=== PATIENT | female | born 1965 | race Caucasian/White ===

== ENCOUNTER 2019-10-17 00:58 | Emergency (ER) | payer BC ==
[2019-10-17 02:05] LABS: Urine Appearance Cloudy; Urine Bilirubin Negative (Negative); Urine Blood Negative (Negative); Urine Color Yellow; Urine Glucose Negative (Negative); Urine Ketones 1+ (Negative); Urine Nitrite Negative (Negative); Urine Protein Negative (Negative); Urine Specific Gravity 1.028 (1.010-1.030); Urine Urobilinogen Negative (Negative)
[2019-10-17] MEDS: NS 0.9% 1000 ML** 1,000 ML IV ONE (02:07)
[2019-10-17 02:11] LABS: Urine Bacteria Absent (Absent); Urine Red Blood Cell Absent (Absent); Urine Squamous Epithelial Cell Present (Absent); Urine White Blood Cell 3+(>20/hpf) (Absent)
[2019-10-17] MEDS: Ondansetron INJ* 2 MG/ML VIAL IV ONE (02:12)
[2019-10-17 02:23] LABS: INR 0.98 (0.82-1.09)
--- NOTE | 2019-10-17 02:27 | ED ---
Abdominal Pain/Female - HPI Summary HPI Summary: This pt is a 53 Y/O F presenting to [facility] with a CC of mid abdominal pain that has been increasing in severity since 2100 10/16/19 with associated nausea. She states that the pain is increased with pressure and food. She has a Hx of a recently diagnosed hernia that she states flared up. Currently she rates the pain 7/10 in severity. She denies any fevers, vomiting, headaches, decreased appetites, and diarrhea. She states that the hernia has been present for 6 months and is easily visible on CT scans. She states that she has a PMHx of Ovarian cancer. - History of Current Complaint Chief Complaint: EDBraeden Stated Complaint: ABD PAIN PER PT Time Seen by Provider: 10/17/19 01:47 Hx Obtained From: Patient ?: No Onset/Duration: Gradual Onset - Has been present for 6 months, Worse Since - Timing: Constant Severity Initially: Mild Severity Currently: Moderate Pain Intensity: 7 Pain Scale Used: 0-10 Numeric Location: Suprapubic, Other - mid abdominl Radiates: No Aggravating Factor(s): Food, Movement Alleviating Factor(s): Position Associated Signs and Symptoms: Positive: Negative - headache, Nausea. Negative : Fever, Decreased Appetite, Vomiting, Diarrhea Allergies/Adverse Reactions: Allergies Allergy/AdvReac Type Severity Reaction Status Date / Time CT contrast dye Allergy Severe Palpitation Uncoded 10/17/19 01:04 s Home Medications: Home Medications Olaparib [Lynparza] 300 mg PO DAILY 10/17/19 [History Confirmed 10/17/19] PMH/Surg Hx/FS Hx/Imm Hx Previously Healthy: Yes Cardiovascular History: Reports: Other Cardiovascular Problems/Disorders - hypothyroidism History: Reports: Other Problems/Disorders - Ovarian CA Sensory History: Reports: Hx Contacts or Glasses Opthamlomology History: Reports: Hx Contacts or Glasses - Cancer History Cancer Type, Location and Year: Ovarian cancer Date and Location of Last Treatment: chemotherapy November 2018 - Surgical History Surgical History: Yes Surgery Procedure, Year, and Place: x 3 - Immunization History Immunizations Up to Date: Yes Infectious Disease History: No Infectious Disease History: Denies: Traveled Outside the [place] in Last 30 Days - Family History Known Family History: Negative: Cardiac Disease, Hypertension - Social History Occupation: Employed Full-time Lives: With Family Alcohol Use: None Hx Substance Use: No Substance Use Type: Reports: None Hx Tobacco Use: No Smoking Status (MU): Never Smoked Tobacco Household Exposure: No Review of Systems Negative: Fever Positive: Abdominal Pain - mid abdominal and suprapubic, Nausea. Negative: Vomiting, Diarrhea Negative: Headache All Other Systems Reviewed And Are Negative: Yes Physical Exam - Summary Physical Exam Summary: General: Well-developed, Well-nourished female in mild discomfort HEENT: Normocephalic, Atraumatic. Eyes: Conjuctiva normal, PERRL. Ears: TMs within normal limits. Nares: (-) discharge, (-) erythema. Oropharynx: Clear, mucous membranes moist, (-) exudates. Neck: Soft, FROM, (-) lymphadenopathy, (-) thyromegaly, (-) JVD. Cardiovascular: Normal sinus rhythm, (-) murmur. Lungs: Clear to auscultation bilaterally (-) wheezes, (-) rales, (-) rhonchi. Abdomen: Soft, non-tender, non-distended, (-) organomegaly, normal bowel sounds. Midline scar with abdominal wall defect protruding Back: (-) CVA tenderness Extremities: No edema. Skin: Warm, dry, (-) rash. Neuro: Alert and oriented x3, no focal deficits. Psychiatric: Mood normal, affect normal. Triage Information Reviewed: Yes Vital Signs On Initial Exam: Initial Vitals Temp Pulse Resp BP Pulse Ox 98.2 F 118 16 147/90 99 10/17/19 01:00 10/17/19 01:00 10/17/19 01:00 10/17/19 01:00 10/17/19 01:00 Vital Signs Reviewed: Yes Procedures - Sedation Patient Received Moderate/Deep Sedation with Procedure: No Diagnostics - Vital Signs Vital Signs Temp Pulse Resp BP Pulse Ox 10/17/19 01:45 98 98 10/17/19 01:44 99 147/84 97 10/17/19 01:00 98.2 F 118 16 147/90 99 - Laboratory Lab Results: Lab Results 10/17/19 Range/Units 01:55 Urine Color Yellow Urine Appearance Cloudy Urine pH 5.0 (5-9) Ur Specific [place] 1.028 (1.010-1.030) Urine Protein Negative (Negative) Urine Ketones 1+ A (Negative) Urine Blood Negative (Negative) Urine Nitrate Negative (Negative) Urine Bilirubin Negative (Negative) Urine Urobilinogen Negative (Negative) Ur Leukocyte Esterase 3+ A (Negative) Urine WBC (Auto) 3+(>20/hpf) A (Absent) Urine RBC (Auto) Absent (Absent) Ur Squamous Epith Cells Present A (Absent) Urine Bacteria Absent (Absent) Urine Glucose Negative (Negative) Urine Ascorbic Acid * A (Negative) Result Diagrams: 10/17/19 02:00 10/17/19 02:00 Lab Statement: Any lab studies that have been ordered have been reviewed, and results considered in the medical decision making process. Re-Evaluation - Re-Evaluation First Eval Re-Evaluation Time: 03:20 Change: Improved Comment: Pt reported that her pain had decreased from a 7 to a 3 and that she felt she was feeling good enough to be discharged home without a CT scan. Abdominal Pain Fem Course/Dx - Course Course Of Treatment: 53-year-old female with known ovarian cancer presents with abdominal pain. Patient states she has a known abdominal hernia. She thinks it is acting up. She states she has not been on her oral chemotherapy for 9 days because her white blood cell counts were so low. Patient given IV fluids, Toradol and Zofran. During physical exam a definitive protrusion was reduced into the abdomen. Patient had significant improvement in her symptoms at that time. Workup showed no significant changes. Patient discharged home. Follow- up with PCP. Follow up sooner for any worsening symptoms. - Diagnoses Provider Diagnoses: Abdominal pain, Abdominal hernia Discharge ED - Sign-Out/Discharge Documenting (check all that apply): Patient Departure - discharge - Discharge Plan Condition: Stable Disposition: HOME Patient Education Materials: Umbilical Hernia (ED), Acute Abdominal Pain (ED) Referrals: Rylee Jaramillo MD [Primary Care Provider] - 2 Days Additional Instructions: PLEASE RETURN TO THE EMERGENCY DEPARTMENT FOR ANY NEW OR WORSENING SYMPTOMS. FOLLOW UP WITH YOUR PRIMARY CARE PROVIDER IN 1-3 DAYS. - Billing Disposition and Condition Condition: STABLE Disposition: Home - Attestation Statements Document Initiated by Scribe: Yes Documenting Scribe: Marshall Kuo Provider For Whom Scribe is Documenting (Include Credential): Natalie Fry MD Scribe Attestation: IMarshall, scribed for Natalie Fry MD on 10/17/19 at 0424. Scribe Documentation Reviewed: Yes Provider Attestation: The documentation as recorded by the scribe, Marshall Kuo accurately reflects the service I personally performed and the decisions made by me, Natalie Fry MD Status of Scribe Document: Viewed
[2019-10-17 02:33] LABS: ALT 15 U/L (7-52); AST 23 U/L (13-39); Albumin 4.4 g/dL (3.2-5.2); Albumin/Globulin Ratio 1.4 (1-3); Alkaline Phosphatase 60 U/L (34-104); Anion Gap 8 mmol/L (2-11); BUN/Creatinine Ratio 27.6 (8-20); Blood Urea Nitrogen 21 mg/dL (6-24); C Reactive Protein 7.63 mg/L (<8.01); CO2 Carbon Dioxide 28 mmol/L (22-32); Calcium 9.9 mg/dL (8.6-10.3); Chloride 103 mmol/L (101-111); EGFR African American 96.3 (>60); EGFR Non-African American 79.6 (>60); Globulin 3.2 g/dL (2-4); Glucose 116 mg/dL (70-100); Potassium 3.4 mmol/L (3.5-5.0); Sodium 139 mmol/L (135-145); Total Protein 7.6 g/dL (6.4-8.9)
[2019-10-17] MEDS: Ketorolac INJ* 30 MG/ML 1 ML VIAL IV PUSH ONE (02:41)
[2019-10-17 03:30] LABS: Polychromasia 1+
[2019-10-17 03:32] LABS: Hematocrit 34 % (35-47); Hemoglobin 11.8 g/dL (12.0-16.0); Mean Corpuscular HGB Conc 35 g/dL (31-36); Mean Corpuscular Hemoglobin 41 pg (27-31); Mean Corpuscular Volume 118 fL (80-97); Platelet Count 172 10^3/uL (150-450); Red Blood Count 2.89 10^6 /uL (3.70-4.87); Red Cell Distribution Width 17 % (10-15); White Blood Count 2.9 10^3/uL (3.5-10.8)
[2019-10-17 03:35] LABS: ABS Lymphocytes 1.1 10^3/ul (1.0-4.8); ABS Monocytes 0.3 10^3/ul (0-0.8); Eosinophil % 1.4 %; Lymphocyte % 45.5 %
[2019-10-17 03:40] LABS: ABS Neutrophils 1.2 10^3/ul (1.5-7.7)
[2019-10-17 03:42] LABS: ABS Nucleated RBC 2.5 10^3/ul
[2019-10-17 04:14] VITALS: BP 118/69
--- NOTE | 2019-10-19 05:46 | ED ---
Imaging and Labs Follow Up Follow Up Type: Labs/Cultures Labs/Culture Result: Urine culture final grew strep group B 50-75,000 Patient was asymptomatic of UTI symptoms Patient Communication/Plan: Patient was not treated with antibiotics prior to discharge Patient Communication/Plan: Treatment appropriate, nothing further required Provider Diagnoses: Abdominal pain, Abdominal hernia
== END 2019-10-17 04:00 | disposition home or self-care (01) ==
LOC: ED 00:58
DX: K46.9 Unspecified abdominal hernia without obstruction or gangrene (principal); E03.9 Hypothyroidism, unspecified; C56.9 Malignant neoplasm of unspecified ovary; Z79.899 Other long term (current) drug therapy; Z91.041 Radiographic dye allergy status
CPT/HCPCS: 36415; 80053; 81003; 81015; 83605; 83690; 85025; 85060; 85610; 86140; 87040; 87077; 87086; 96361; 96374; 99282; J1885

== ENCOUNTER 2020-03-10 10:28 | Emergency (ER) | payer BC, OTHER ==
--- OUTSIDE RECORDS SUMMARY | 2020-03-10 10:36 | XMS REPORT | Summary of Care ---
:1965 Author Organization [facility] Address [address] [place] [address] Care Team Providers Name Role Phone Unavailable Primary Care Provider Unavailable Encounter Details Date Type Department Care Team Description 01/12/2020 Hospital Encounter [facility] Clinical Pathology at [address] [address] Allergies Not on Filedocumented as of this encounter (statuses as of 01/13/2020) Medications Not on filedocumented as of this encounter (statuses as of 01/13/2020) Active Problems Not on filedocumented as of this encounter (statuses as of 01/13/2020) Social History Tobacco Use Types Packs/Day Years Used Date Never Assessed Sex Assigned at Date Recorded Not on file Job Start Date Occupation Industry Not on file Not on file Not on file Travel History Travel Start Travel End No recent travel history available. documented as of this encounter Last Filed Vital Signs Not on filedocumented in this encounter Plan of Treatment Name Type Priority Associated Diagnoses Date/Time Hematopathology Pathology and Routine 01/12/2020 3:44 PM Cytology EST Name Type Priority Associated Diagnoses Order Schedule Hematopathology Pathology and Routine Once for 1 Cytology Occurrences starting 01/12/2020 until 01/12/2020 Health Maintenance Due Date Last Done Comments Hepatitis C Screening (B. 1965 [id number]) MMR Vaccines (1 of 1 - Standard 1966 series) Varicella Vaccines (1 of 2 - 1966 2-dose childhood series) DTaP,Tdap,and Td Vaccines (1 - 1972 Tdap) HIV Screening 1978 Cervical Cancer Screening 5 years 1986 Breast Cancer Screening 2 years 2015 Colon Cancer Screening 10 yrs 2015 Influenza Vaccine 08/26/2019 Pneumococcal Vaccine: 65+ Years (1 2030 of 2 - PCV13) HIB Vaccines Aged Out No longer eligible based on patient's age to complete this topic Hepatitis A Vaccines Aged Out No longer eligible based on patient's age to complete this topic Hepatitis B Vaccines Aged Out No longer eligible based on patient's age to complete this topic IPV Vaccines Aged Out No longer eligible based on patient's age to complete this topic Pneumococcal Vaccine: Pediatrics Aged Out No longer eligible based on (0 to 5 Years) and At-Risk patient's age to complete this Patients (6 to 64 Years) topic documented as of this encounter Results Not on filedocumented in this encounter
--- OUTSIDE RECORDS SUMMARY | 2020-03-10 10:36 | XMS REPORT | Summary of Care ---
:1965 Author Organization [facility] Address [address] [place] [address] Care Team Providers Name Role Phone Clint Rylee Primary Care Provider Reason for Visit Reason Comments Abscess pt states she has an abscess on top left side of gums since sunday. ( pressure and puffy) Encounter Details Date Type Department Care Team Description 01/12/2020 Office Visit [facility], Gum inflammation ( Primary Dx); Practice [facility] Low hemoglobin; [address] Malignant neoplasm of uterus, unspecified site (HCC) [place], [place] [address] [place] [address] [phone] Allergies Active Allergy Reactions Severity Noted Date Comments Dye Intravenous Radiographic Hives, Cardiac Reaction High 07/02/2019 Imaging Contrast documented as of this encounter (statuses as of 01/12/2020) Medications Medication Sig Dispensed Refills Start Date End Date Status aspirin 325 MG Oral Take 325 mg by 0 Active Tab mouth DAILY. levothyroxine TAKE 1 TABLET 90 Tab 0 10/13/2019 Active (SYNTHROID\\UNITHROI BEFORE D) 100 MCG Oral Tab BREAKFAST acyclovir (ZOVIRAX) 0 01/05/2020 Active 400 MG Oral Tab allopurinol 0 01/05/2020 Active (ZYLOPRIM) 300 MG Oral Tab foliC acid 1 MG 0 01/05/2020 Active Oral Tab amoxicillin-clavula Take 1 Tab by 20 Tab 0 01/12/2020 Active master acid (AUGMENTIN mouth TWICE 875 MG) 875-125 MG DAILY. Oral Tab Olaparib (LYNPARZA) Take 2 Tabs by 0 Discontinued 150 MG Oral Tab mouth TWICE 0 DAILY. documented as of this encounter (statuses as of 01/12/2020) Active Problems Problem Noted Date Knee pain, bilateral 02/18/2016 Uterine cancer 10/05/2014 Overview: Dx February 2014 S/p 6 cycles of chemo completed August 2014 Pulmonary embolus 10/05/2014 Overview: Apr 04 2014 Failed warfarin and maintained on Lovenox Hypothyroidism documented as of this encounter (statuses as of 01/12/2020) Social History Tobacco Use Types Packs/Day Years Used Date Never Smoker Smokeless Tobacco: Never Used Alcohol Use Drinks/Week oz/Week Comments No Sex Assigned at Date Recorded Not on file documented as of this encounter Last Filed Vital Signs Vital Sign Reading Time Taken Comments Blood Pressure 126/78 01/12/2020 8:10 AM EST Pulse 93 01/12/2020 8:10 AM EST Temperature 38.2 01/12/2020 8:10 AM C (100.8 EST F) Respiratory Rate - - Oxygen Saturation 98% 01/12/2020 8:10 AM EST Inhaled Oxygen Concentration - - Weight 76.2 kg (168 lb) 01/12/2020 8:10 AM EST Height 165.1 cm (5' 5") 01/12/2020 8:10 AM EST Body Mass Index 27.96 01/12/2020 8:10 AM EST documented in this encounter Patient Instructions Patient InstructionsDodgeEmily PA-C - 01/12/2020 8:00 AM ESTEscribed augmentin 875mg BID x 10 days, take with food Warm salt water rinses 3-4 x daily Avoid hard, crunchy foods OTC Ibuprofen 400mg twice daily, take with food for inflammation and fever Call Industrial Controller today, fever, low H&H and elevated bilirubin is concern documented in this encounter Progress Notes Emily Martins PA-C - 01/12/2020 8:00 AM EST PATIENT: Monika Medrano : 1965 DATE OF SERVICE: 01/12/2020 REFERRING PRACTITIONER: Self-Referred PRIMARY CARE PROVIDER: Rylee Jaramillo CHIEF COMPLAINT: Chief Complaint Patient presents with ? Abscess pt states she has an abscess on top left side of gums since sunday. ( pressure and puffy) Subjective HISTORY OF PRESENT ILLNESS: Monika Medrano is a 54-y.o. female who presents with abscess upper left gum x 2 days Has uterine cancer, sees electric appliance installer in [place] and [place] Scheduled for next round of chemo Wed Had blood drawn at [facility] last Hgb: 7.0, hct: 21; tbili: 2.7 Says her H&H has been trending down, feels she will need another blood transfusion soon Has one in [place] at during last chemo 4 weeks ago Denies nausea, vomiting, diarrhea, chest pains, SOB Past Medical History: Diagnosis Date ? H/O splenectomy ? Hypothyroidism ? Pulmonary embolus (HCC) 10/05/2014 Apr 04 2014 Failed warfarin and maintained on Lovenox . After [facility] ? Uterine cancer (HCC) 10/05/2014 . [facility] [place] [place] Past Surgical History: Procedure Laterality Date ? APPENDECTOMY ? SECTION NEC x3 ? [place] TOTAL ABDOM HYSTERECTOMY 2016 Vaginal reoccurance in 2016 ? TOTAL SPLENECTOMY No family history on file. Current Outpatient Medications Medication Sig ? aspirin 325 MG Oral Tab Take 325 mg by mouth DAILY. ? levothyroxine (SYNTHROID\\UNITHROID) 100 MCG Oral Tab TAKE 1 TABLET BEFORE BREAKFAST ? Olaparib (LYNPARZA) 150 MG Oral Tab Take 2 Tabs by mouth TWICE DAILY. No current facility-administered medications for this visit. Allergies Allergen Reactions ? Dye Intravenous Radiographic Imaging Contrast Hives and Cardiac Reaction Social History Socioeconomic History ? Marital status: Spouse name: Not on file ? Number of children: Not on file ? Years of education: Not on file ? Highest education level: Not on file Occupational History ? Not on file Social Needs ? Financial resource strain: Not on file ? Food insecurity Worry: Not on file Inability: Not on file ? Transportation needs Medical: Not on file Non-medical: Not on file Tobacco Use ? Smoking status: Never Smoker ? Smokeless tobacco: Never Used Substance and Sexual Activity ? Alcohol use: No ? Drug use: No ? Sexual activity: Yes Partners: Male Lifestyle ? Physical activity Days per week: Not on file Minutes per session: Not on file ? Stress: Not on file Relationships ? Social connections Talks on phone: Not on file Gets together: Not on file Attends catholic service: Not on file Active member of club or organization: Not on file Attends meetings of clubs or organizations: Not on file Relationship status: Not on file ? Intimate partner violence Fear of current or ex partner: Not on file Emotionally abused: Not on file Physically abused: Not on file Forced sexual activity: Not on file Other Topics Concern ? Back Care Not Asked ? Bike Helmet Not Asked ? Blood Transfusions No ? Caffeine Concern Not Asked ? Exercise Yes Comment: soft ball in summer/walking/eliptical ? Hobby Hazards Not Asked ? International Travel Not Asked ? Service Not Asked ? Occupational Exposure Not Asked ? Seat Belt Not Asked ? Self-Exams Not Asked ? Sleep Concern Not Asked ? Special Diet Not Asked ? Stress Concern Not Asked ? 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 Left upper gums tender, swollen Respiratory: positive mild cough Cardiovascular: negative chest pain Gastrointestinal: negative abdominal pain, constipation, diarrhea, nausea or vomiting Genitourinary: negative burning on urination, dysuria or vaginal discharge Musculoskeletal: positive arthritis/joint pain Neurologic: negative numbness or tingling of feet or hands Psychiatric: negative anxiety Hematologic/Lymphatic/Immunologic: negative allergies. Positive uterine cancer Endocrine: positive hypothyroidism Objective PHYSICAL EXAMINATION: VITALS: BP 126/78 (BP Location: Right arm, Patient Position: Sitting) | Pulse 93 | Temp 100.8 F (38.2 C) | Ht 5' 5" (1.651 m) | Wt 168 lb (76.2 kg ) | SpO2 98% | BMI 27.96 kg/m Body mass index is 27.96 kg/m. General appearance: alert, mild distress, cooperative, oriented times 3 Skin: mild jaundice present face Head: Normocephalic. No masses, lesions, tenderness or abnormalities Eyes: conjunctivae/corneas clear. PERRL, EOM's intact. Ears: TMs and canals normal bilaterally Nose/Sinuses: mucosa normal, no rhinorrhea Oropharynx: positive findings: left upper gum is swollen, mild erythema, tender to palpation Neck: Neck supple, FROM. No cervical or supraclavicular adenopathy. Lungs: Lungs clear. Chest symmetrical. Normal breath sounds. Heart: RRR. No murmur, clicks or gallops. No peripheral edema . IMPRESSION: ICD-9-CM ICD-10-CM 1. Gum inflammation 523.10 K05.10 2. Low hemoglobin 285.9 D64.9 3. Malignant neoplasm of uterus, unspecified site (HCC) 179 C55 Plan PLAN: Escribed augmentin 875mg BID x 10 days, take with food Warm salt water rinses 3-4 x daily Avoid hard, crunchy foods OTC Ibuprofen 400mg twice daily, take with food for inflammation and fever Call Industrial Controller today, fever, low H&H and elevated bilirubin is concern Author: Emily Martins PA-C 01/12/2020 08:06 documented in this encounter Plan of Treatment Date Type Specialty Care Team Description 06/30/2020 Office Visit [facility]in[facility] [address] [address] Health Maintenance Due Date Last Done Comments PNEUMOCOCCAL 0-64 YRS (1 of 1971 3 - PCV13) DTaP/Tdap/Td Vaccines (1 - 1976 Tdap) Colonoscopy 2015 ZOSTER IMMUNIZATION SERIES 2015 (1 of 2) MAMMOGRAM (SCREENING) 08/26/2016 08/26/2015, 03/16/2014 (Declined), 10/12/2008 INFLUENZA VACCINE (#1) 2019 DIABETES SCREENING 07/30/2019 07/30/2018, 07/27/2017, 07/27/2017, Additional history exists DEPRESSION SCREENING 01/12/2021 01/12/2020 LIPID DISORDER SCREENING 07/27/2022 07/27/2017 HEPATITIS A IMMUNIZATION Aged Out No longer eligible SERIES based on patient's age to complete this topic HPV IMMUNIZATION SERIES Aged Out No longer eligible based on patient's age to complete this topic MENINGOCOCCAL VACCINE IMM Aged Out No longer eligible based on patient's age to complete this topic documented as of this encounter Results Not on filedocumented in this encounter Visit Diagnoses Diagnosis Gum inflammation Chronic gingivitis, plaque induced Low hemoglobin Anemia, unspecified Malignant neoplasm of uterus, unspecified site (HCC) documented in this encounter Insurance Payer Benefit Plan / Subscriber ID Effective Dates Phone Address Type Group [employer] [id number] 2015-Present [employer] Guarant[employer] Name Account Type Relation to Date of Phone Billing Patient Address Monika Medrano Personal/Family 1965 [address] [phone] [place], [place] (Work) [address] documented as of this encounter
--- OUTSIDE RECORDS SUMMARY | 2020-03-10 10:36 | XMS REPORT | Summary of Care ---
:1965 Author Organization [facility] Address [address] [place] [address] Care Team Providers Name Role Phone Unavailable Primary Care Provider Unavailable Encounter Details Date Type Department Care Team Description 01/22/2020 Hospital Encounter [facility] Clinical Pathology at [address] [address] Allergies Not on Filedocumented as of this encounter (statuses as of 01/23/2020) Medications Not on filedocumented as of this encounter (statuses as of 01/23/2020) Active Problems Not on filedocumented as of this encounter (statuses as of 01/23/2020) Social History Tobacco Use Types Packs/Day Years [...] Plan of Treatment Name Type Priority Associated Date/Time Diagnoses Leukemia/Lymphoma Lab Routine 01/22/2020 8:59 Phenotype, Peripheral AM EST Cytogenetics Oncology, Pathology and Routine 01/22/2020 12:56 Blood and Bone Marrow Cytology PM EST Hematopathology Pathology and Routine 01/22/2020 1:49 Cytology PM EST Name Type Priority Associated Order Schedule Diagnoses Leukemia/Lymphoma Lab Routine Once for 1 Phenotype, Peripheral Occurrences starting 01/22/2020 until 01/22/2020 Cytogenetics Oncology, Pathology and Routine Once for 1 Blood and Bone Marrow Cytology Occurrences starting 01/22/2020 until 01/22/2020 Hematopathology Pathology and Routine Once for 1 Cytology Occurrences starting 01/22/2020 until 01/22/2020 Health Maintenance Due Date Last Done Comments Hepatitis C Screening (B. 1965 [id number]) MMR Vaccines (1 of 1 - Standard [...] Years) topic documented as of this encounter Procedures Procedure Name Priority Date/Time Associated Diagnosis Comments BM KARYO RFX Routine 01/22/2020 8:59 AM Results for this FISH () EST procedure are in the results section. documented in this encounter Results BM Karyo Rfx FISH (01/22/2020 8:59 AM EST) BM Karyo Rfx For Results, Please [facility] FISH See Cytogenetics CLINICAL Report PATHOLOGY Specimen Bone Marrow Performing Organization Address City/State/Zipcode Phone Number [facility] CLINICAL PATHOLOGY [address] [place] [address] [phone] documented in this encounter
[2020-03-10] MEDS ORDERED: NS 0.9% 1000 ML** 1,000 ML IV ONE ×2 (10:40→12:26)
--- NOTE | 2020-03-10 11:12 | ED ---
Complex/Multi-Sys Presentation - HPI Summary HPI Summary: Patient is a 54 y/o F w/ Hx of AML who presents to [facility] with complaints of SOB , anterior CP, dizziness, and fevers. The patient has been getting chemotherapy with most recent administration having been three weeks ago. Patient has been SOB the past few weeks with a recent worsening of this Sx. Fevers have been intermittent with most recent having occurred yesterday. No vomiting, diarrhea, BLE edema noted. Hx of pancytopenia and ovarian cancer in remission noted as well. Patient was tested for COVID-19 last week and resulted negative. Patient states that she was initially following oncology in [place] but due to the pandemic switched services over to [place]. Patient has a right-sided port-a- cath placed. PSHx of caesarean section noted. Allergy to contrast dye claimed. She is a non-smoker and denies alcohol and substance usage. Home medications and allergies are reviewed. - History Of Current Complaint Chief Complaint: EDShortnessOfBreath Time Seen by Provider: 03/10/20 10:39 Hx Obtained From: Patient Onset/Duration: Lasting Weeks - SOB Timing: Intermittent, Lasting: - fevers, Weeks - SOB Location: Pain At: - chest Associated Signs And Symptoms: Positive: Dizziness, SOB, Chest Pain, Fever. Negative: Edema, Vomiting, Diarrhea - Allergies/Home Medications Allergies/Adverse Reactions: Allergies Allergy/AdvReac Type Severity Reaction Status Date / Time CT contrast dye Allergy Severe Palpitation Uncoded 10/17/19 01:04 s Home Medications: Home Medications Acyclovir* [Zovirax 400 MG TAB*] 400 mg PO BID 03/10/20 [History Confirmed 03/10] Allopurinol TAB* [Zyloprim 300 MG TAB*] 300 mg PO DAILY 03/10/20 [History Confirmed 03/10/20] Aminocaproic Acid 1,000 mg PO BID 03/10/20 [History Confirmed 03/10/20] Folic Acid TAB* [Folvite TAB*] 1 mg PO DAILY 03/10/20 [History Confirmed ] Levofloxacin TAB* [Levaquin TAB*] 750 mg PO DAILY 03/10/20 [History Confirmed ] Posaconazole (NF) [Noxafil (NF)] 100 mg PO TID 03/10/20 [History Confirmed 03/10] Potassium Chlor TAB* [Klor Con ER TAB*] 10 meq PO BID 03/10/20 [History Confirmed 03/10/20] Prochlorperazine 10 mg TAB [Compazine 10 mg TAB] 10 mg PO Q8H PRN 03/10/20 [ History Confirmed 03/10/20] Venetoclax [Venclexta] 100 mg PO DAILY 03/10/20 [History Confirmed 03/10/20] PMH/Surg Hx/FS Hx/Imm Hx Cardiovascular History: Reports: Other Cardiovascular Problems/Disorders - hypothyroidism History: Reports: Other Problems/Disorders - Ovarian CA Sensory History: Reports: Hx Contacts or Glasses Opthamlomology History: Reports: Hx Contacts or Glasses - Cancer History Cancer Type, Location and Year: Ovarian cancer - Surgical History Surgery Procedure, Year, and Place: x 3 Infectious Disease History: No Infectious Disease History: Denies: Traveled Outside the [place] in Last 30 Days - Family History Known Family History: Negative: Cardiac Disease, Hypertension - Social History Alcohol Use: None Hx Substance Use: No Substance Use Type: Reports: None Hx Tobacco Use: No Smoking Status (MU): Never Smoked Tobacco Review of Systems Positive: Fever Positive: Chest Pain Positive: Shortness Of Breath Negative: Vomiting, Diarrhea Negative: Edema Neurological/Mental Status: Other - positive - dizziness All Other Systems Reviewed And Are Negative: Yes Physical Exam - Summary Physical Exam Summary: Constitutional: Well-developed, Well-nourished, Alert. (-) Distressed Skin: Warm, Dry, Pale. HENT: Normocephalic; Atraumatic Eyes: Conjunctiva normal Neck: Musculoskeletal ROM normal neck. (-) JVD, (-) Stridor, (-) Tracheal deviation Cardio: Rhythm regular, rate normal, Heart sounds normal; Intact distal pulses; Radial pulses are 2+ and symmetric. (-) Murmur Pulmonary/Chest wall: Tachypneic, speaking in short sentences, 100% o2 saturation on RA. (-) Wheezes, (-) Rales Abd: Soft, (-) tenderness, (-) Distension, (-) Guarding, (-) Rebound Musculoskeletal: (-) Edema Lymph: (-) Cervical adenopathy Neuro: Alert, Oriented x3 Psych: Mood and affect Normal Triage Information Reviewed: Yes Vital Signs On Initial Exam: Initial Vitals Temp Pulse Resp BP Pulse Ox 98.8 F 99 24 87/53 95 03/10/20 10:31 03/10/20 10:31 03/10/20 10:31 03/10/20 10:31 03/10/20 10:31 Vital Signs Reviewed: Yes Procedures - Sedation Patient Received Moderate/Deep Sedation with Procedure: No Diagnostics - Vital Signs Vital Signs Temp Pulse Resp BP Pulse Ox 03/10/20 10:31 98.8 F 99 24 87/53 95 - Laboratory Result Diagrams: 03/10/20 11:30 03/10/20 11:30 Lab Statement: Any lab studies that have been ordered have been reviewed, and results considered in the medical decision making process. - CT CT CHEST CT Interpretation Completed By: Radiologist Summary of CT Findings: IMPRESSION: #. No evidence for pulmonary metastasis. # . No compelling evidence for pneumonia. #. Hepatomegaly new compared with the prior exam. THIS REPORT WAS REVIEWED BY ED PHYSICIAN. - EKG 1134 Cardiac Rate: NL - rate of 91 BPM EKG Rhythm: Sinus Rhythm Summary of EKG Findings: EKG showed NSR with rate of 91 BPM, no STEMI. ST flattening in leads III and aVF. ED physician has reviewed and interpreted this EKG. Re-Evaluation - Re-Evaluation First Eval Re-Evaluation Time: 13:38 Comment: Report given to transfer center, awaiting consult with physician from [place]. Complex Multi-Symp Course/Dx Course Of Treatment: Patient was sent in from her oncologist in [place]. Patient is currently undergoing chemotherapy for AML. She was very pale upon arrival and borderline hypotensive. Patient has been having shortness of breath and periodic fever with her last fever yesterday. Patient had a negative Covid 19 swab last week. Patient had a chest x-ray performed which showed no abnormality. Patient had blood performed which showed a hemoglobin of 5 so patient was given 1 unit of packed red blood cells prior to transfer. Patient was found to have a platelet count of 25 and a WBC count of 46 with 66% blast cells. Patient has hyponatremia with a sodium 126 and a creatinine for creatinine of 3.2. Patient is at risk for PE so a d-dimer sent which is greater than 1050. Patient also has an elevated troponin of 0.24. Patient is allergic to IV contrast dye. The idea of starting him. Heparin was entertained but on [place] recommended against it without confirmed PE given her thrombocytopenia. Patient was given a 30/kg bolus, cefepime empirically. Patient was retested for Covid 19 given her symptoms and high pretest probability. Patient had blood culture sent. Oncology at our facility and in [place] were called and they were both recommended transfer to [facility] for advanced chemotherapeutically cannot provide. Patient was accepted by [place] and transferred via EMS. - Diagnoses Provider Diagnoses: Anemia, Elevated troponin, Pulmonary embolism, Acute kidney injury, Hyponatremia - Physician Notifications Discussed Care Of Patient With: Daria Zuñiga Time Discussed With Above Provider: 12:37 Instructed by Provider To: Other - Patient's case discussed with Dr. Zuñiga, Dr. Zuñiga to evaluate for admission. 1324 - Dr. Zuñiga called back and states that, after consultation with Dr. Zacarias, oncology, the patient will require transfer. Patient's team in [place] was contacted and they stated that the patient will require transfer to [facility] in [place] for specific chemotherapy medications. 1410 - Patient's case was discussed with Dr. Zacarias, Dr. Zacarias advises against anticoagulation therapy without confirmed PE. 1431 - Patient's case was discussed with Dr. Blair, Dr. Blair accepts the patient for transfer to [facility] in [place]. - Critical Care Time Critical Care Time: 75-104 min - 90 minutes CCT Critical Care Statement: Critical care time is provided exclusive of any time spent performing procedures. Discharge ED - Sign-Out/Discharge Documenting (check all that apply): Patient Departure - transfer - Discharge Plan Condition: Fair Disposition: TRANS HIGHER LVL OF CARE FAC Referrals: Rylee Jaramillo MD [Primary Care Provider] - - Billing Disposition and Condition Condition: FAIR Disposition: Trans Higher Lvl of Care Fac - Attestation Statements Document Initiated by Scribe: Yes Documenting Scribe: DOLLY BRYANT Provider For Whom Justin is Documenting (Include Credential): KRISTOPHER POE MD Scribe Attestation: DOLLY Harper, scribed for KRISTOPHER POE MD on 03/10/20 at 1538. Scribe Documentation Reviewed: Yes Provider Attestation: The documentation as recorded by the DOLLY turner accurately reflects the service I personally performed and the decisions made by me, KRISTOPHER POE MD Status of Scribe Document: Viewed
[2020-03-10 12:07] LABS: Hematocrit 15 % (35-47); Mean Corpuscular HGB Conc 34 g/dL (31-36); Mean Corpuscular Hemoglobin 28 pg (27-31); Mean Corpuscular Volume 82 fL (80-97); Red Blood Count 1.77 10^6 /uL (3.70-4.87); Red Cell Distribution Width 18 % (10-15)
[2020-03-10 12:17] LABS: ALT 17 U/L (7-52); AST 77 U/L (13-39); Albumin 3.2 g/dL (3.2-5.2); Alkaline Phosphatase 224 U/L (34-104); Anion Gap 20 mmol/L (2-11); BUN/Creatinine Ratio 18.3 (8-20); Blood Urea Nitrogen 59 mg/dL (6-24); C Reactive Protein 208.52 mg/L (<8.01); CO2 Carbon Dioxide 15 mmol/L (22-32); Calcium 9.7 mg/dL (8.6-10.3); Chloride 91 mmol/L (101-111); EGFR African American 18.1 (>60); EGFR Non-African American 14.9 (>60); Globulin 3.2 g/dL (2-4); Glucose 137 mg/dL (70-100); Sodium 126 mmol/L (135-145); Total Protein 6.4 g/dL (6.4-8.9)
[2020-03-10 12:19] LABS: Troponin I 0.27 ng/mL (<0.03)
[2020-03-10] MEDS ORDERED: Cefepime 1 GM in Dextrose(*) 1 GM/50 ML BAG IV ONE (12:19)
[2020-03-10 12:22] LABS: Influenza A Molecular Negative (Negative); Influenza B Molecular Negative (Negative)
[2020-03-10] MEDS ORDERED: NS 0.9% 1000 ML** 200 ML IV ONE (12:26)
[2020-03-10] MEDS ORDERED: Heparin DRIP 25,000 UNITS(*) 25,000 UNITS/500 ML BAG IV SCH (12:30)
[2020-03-10] MEDS ORDERED: Heparin VIAL(*) 5000 UNITS/ML VIAL (FIVE THOUSAND) IV PRN (12:41)
[2020-03-10 13:50] LABS: Activated Partial Thrombo Time 31.8 seconds (26.0-38.0)
[2020-03-10 14:02] LABS: Schistocytes 2+
[2020-03-10 14:04] LABS: Mean Platelet Volume 6.5 fL (7.4-10.4); Platelet Count 25 10^3/uL (150-450); White Blood Count 47.6 10^3/uL (3.5-10.8)
[2020-03-10 16:43] VITALS: BP 88/49
== END 2020-03-10 16:41 | disposition short-term general hospital (02) ==
LOC: ED 10:28
DX: D64.9 Anemia, unspecified (principal); R79.89 Other specified abnormal findings of blood chemistry; I26.99 Other pulmonary embolism without acute cor pulmonale; E03.9 Hypothyroidism, unspecified; R42 Dizziness and giddiness; R06.02 Shortness of breath; R07.9 Chest pain, unspecified; R50.9 Fever, unspecified; Z79.899 Other long term (current) drug therapy; Z85.43 Personal history of malignant neoplasm of ovary; N17.9 Acute kidney failure, unspecified; E87.1 Hypo-osmolality and hyponatremia
CPT/HCPCS: 36415; 71250; 78580; 80053; 83605; 83880; 84484; 85025; 85060; 85379; 85730; 86140; 86850; 86900; 86901; 86922; 87040; 87635; 93005; 96361; 96374; 99285; A9540; G2023; J0692; J1644; P9040